=== PATIENT | female | born 1985 | race Caucasian/White ===

== ENCOUNTER 2017-07-22 00:13 | Emergency (ER) | payer OTHER ==
[~2017-07-22] VITALS: Ht 162.6 cm; Wt 81.1 kg
[~2017-07-22 00:13] MED LIST: ABILIFY10 MG PO; ALAVERT10 M1 PO; ALLERGY RELIE15.8 ML BOTH NARES; AMITRIPTYLINE H25 MG PO; ANXIETY MEDICATION; BUPRENORPHIN-N1 EACH SL; BUSPAR10 MG PO; CHROMAGEN,1 CAPSULE PO; CLINDAMYCIN HC300 MG PO; CYMBALTA20 MG PO; ELAVIL25 MG PO; ESCITALOPRAM OX10 MG PO; HYDROCODON-ACE1 EA11 PO; HYDROCODON-ACE1 EAC5 PO; IBUPROFEN800 MG PO; KEFLEX500 MG PO; LATUDA40 MG PO; LEXAPRO20 MG PO; LORCET 5-325 M1 EACH PO; METHADONE HCL40 MG PO; METHADONE10 MG PO; METHADOSE10 MG/1 ML PO; MOTRIN800 MG PO; NOHOMEMEDS; NORCO 5/3251 TABLET PO; OMEPRAZOLE40 M1 PO; PRENATAL TABLE1 EACH PO; PRILOSEC20 MG PO; PRILOSEC40 MG PO; PRISTIQ50 MG PO; PROAIR HFA8.5 GM IH; PROMETHAZINE HC25 M1 PO; SKELAXIN400 M1 NG; SUBOXONE 8 MG-1 EAC2 SL; TOPAMAX50 MG PO; TRAZODONE HCL50 MG PO; ZOFRAN4 MG PO
[2017-07-22] MEDS ORDERED: MOTRIN800 MG PO (02:15)
[2017-07-22] MEDS ORDERED: BACTRIM,SEPT1 TABLET PO (02:15)
[2017-07-22] MEDS ORDERED: KEFLEX500 MG PO (02:15)
[2017-07-22] MEDS ORDERED: PROVENTIL HFA6.7 GM IH (02:15)
[2017-07-22 02:32] VITALS: BP 154/106
== END 2017-07-22 02:33 | disposition home or self-care (01) ==
LOC: EME 00:13
PROC: 0H9DXZZ Drainage of Right Lower Arm Skin, External Approach (ICD-10-PCS; principal; 2017-07-22)
DX: L02.413 Cutaneous abscess of right upper limb (principal); J06.9 Acute upper respiratory infection, unspecified; M79.7 Fibromyalgia; J44.9 Chronic obstructive pulmonary disease, unspecified; Z88.2 Allergy status to sulfonamides; Z88.0 Allergy status to penicillin; F17.200 Nicotine dependence, unspecified, uncomplicated
CPT/HCPCS: 71046; 99281; 99284